=== PATIENT | female | born 1950 | race Caucasian/White ===

== ENCOUNTER → 2016-10-03 | Outpatient (CLI) | payer BC, MEDICARE ==
[~2016-10-03] MED LIST: ESTR1PAT23 TD; LEVO200T44 PO; OXYC-48 PO
== END ==
LOC: NWCC 08:23
PROVIDERS: ATTEND Internal Medicine
DX: S21.102A Unspecified open wound of left front wall of thorax without penetration into thoracic cavity, initial encounter (principal); B96.89 Other specified bacterial agents as the cause of diseases classified elsewhere; E03.9 Hypothyroidism, unspecified; L53.9 Erythematous condition, unspecified
CPT/HCPCS: 11042; A6210; G0463

== ENCOUNTER → 2016-10-10 | Outpatient (CLI) | payer MEDICARE ==
[~2016-10-10] MED LIST changes: +CALMOSEPTINE OINTMENT 3.5 G PACKET TOP ONE; +SALINE FLUSH 10ml SYRINGE IVF ONE
== END ==
LOC: NWCC 08:23
PROVIDERS: ATTEND Internal Medicine
DX: S21.102A Unspecified open wound of left front wall of thorax without penetration into thoracic cavity, initial encounter (principal); L53.9 Erythematous condition, unspecified; R60.0 Localized edema; B96.89 Other specified bacterial agents as the cause of diseases classified elsewhere
CPT/HCPCS: A6209; A6210; A9270; G0463

== ENCOUNTER → 2016-10-24 | Outpatient (CLI) | payer MEDICARE ==
[~2016-10-24] MED LIST changes: -CALMOSEPTINE OINTMENT 3.5 G PACKET TOP ONE; -SALINE FLUSH 10ml SYRINGE IVF ONE
== END ==
LOC: NWCC 08:30
PROVIDERS: ATTEND Internal Medicine
DX: S21.102A Unspecified open wound of left front wall of thorax without penetration into thoracic cavity, initial encounter (principal)
CPT/HCPCS: 97597; A6209